=== PATIENT | male | born 1935 | race Caucasian/White ===

== ENCOUNTER 2017-03-07 12:23 | Observation (INO) | payer MEDICARE, OTHER ==
--- NOTE | 2017-03-07 12:36 | ERNOTE ---
Chest Pain/Cardiac HPI Chief Complaint: Chest Pain Time Seen by Provider: 03/07/17 12:25 Source: patient Exam Limitations: no limitations Immunizations: IMMUNIZATION HX Immunizations Up to Date Yes History of Influenza Vaccine No Hx Pneumococcal Vaccination No Allergies/Adverse Reactions: Allergies atorvastatin calcium [From Lipitor] Adverse Reaction (Mild, Verified 03/07/17 15 :50) LEG WEAKNESS metformin Adverse Reaction (Mild, Verified 03/07/17 15:50) Diarrhea methotrexate Adverse Reaction (Mild, Verified 03/07/17 15:50) ELEVATED LFT'S morphine Adverse Reaction (Mild, Verified 03/07/17 15:50) N/V oxycodone HCl [From Percocet] Adverse Reaction (Mild, Verified 03/07/17 15:50) INTOLERANCE, STOMACH UPSET, "KNOCKED ME OUT" Home Medications: HOME MEDICATIONS Omeprazole 20 mg PO DAILY 10/03/13 [Last Taken Unknown] Tamsulosin HCl 0.4 mg PO 1900 10/03/13 [Last Taken Unknown] Hydroxychloroquine Sulfate [Plaquenil] 200 mg PO BID 03/17/14 [Last Taken Unknown] Etanercept [Enbrel] 50 mg SQ Q7D 03/18/15 [Last Taken Unknown] Cholecalciferol (Vitamin D3) [Vitamin D] 2,000 unit PO DAILY 08/16/15 [Last Taken Unknown] Nintedanib Esylate [Ofev] 150 mg PO BID 08/16/15 [Last Taken Unknown] Narrative: Patient was working on his vacuum suede cleaner when he fell and passed out. He is not sure about the exact time frame. Afterwards he got up, went to bed and called his daughter (around 11:30) at that time he complained about chest pain which has resolved now. He has chronic pulmonary fibrosis and is on home O2. His daughters report that the furniture was moved indicating that he fell down hard. He also vomited once at home. Timing: gone now Location: left chest Chest Pain Radiation: arms Activities at Onset: activity Nitro Today/Relief: no nitro taken today Aspirin Treatment Today: provided by EMS Associated Symptoms: Present: shortness of breath Prior Chest Pain/Cardiac Workup: Reports: prior chest pain Review of Systems - Review of Systems Constitutional: Absent: recent illness, fever Respiratory: Present: See HPI, shortness of breath. Absent: cough Cardiology: Present: See HPI Gastrointestinal/Abdominal: Present: See HPI, vomiting. Absent: diarrhea, abdominal pain Genitourinary: Present: no symptoms reported Musculoskeletal: Present: neck pain - occippital Neurological: Present: headache, dizziness/light-headedness - Patient's Past Medical History Patient History - Medical: Anxiety, Depression, Renal Disease, Other Patient History - Cardiac/Respiratory: Other Patient History - Cancer: Bladder Patient History - Surgical Procedures: Appendectomy, Cataracts, Coronary Bypass Surgery, Cardiac stent, Other Patient History - Other: None - Family History Mother Family History - Medical: , Diabetes Type 1 Father Family History - Medical: Family History - Cardiac/Respiratory: CVA/Stroke - Social History Living Situations: alone Abuse History: No History of abuse Psych History: Hx of Anxiety, Hx of Depression Alcohol Use: none Drug Use: none - Immunizations Immunizations Up to Date: Yes Hx Pneumococcal Vaccination: No History of Influenza Vaccine: No Physical Exam - Physical Exam General Appearance: Present: wd/wn, alert, no apparent distress Head Exam: Present: normal inspection, no evidence of injury Eye Exam: Normal inspection: bilateral, PERRL: bilateral, EOMI: bilateral Ears, Nose, Throat: Present: normal ENT inspection, normal pharynx Neck: Present: normal inspection, supple, full range of motion. Absent: tender posterior midline Respiratory: Present: no respiratory distress, no accessory muscle use, lungs clear, decreased breath sounds Cardiovascular/Chest: Present: regular rate, rhythm, no murmur Gastrointestinal/Abdominal: Present: normal bowel sounds, nontender, nondistended, soft Back Exam: Present: normal inspection, no vertebral tenderness Extremity Exam: Present: no edema Neurological Exam: Present: alert, oriented, normal mood/affect Skin Exam: Present: normal color, warm/dry ED Progress - Results and Orders Patient's Lab Results:: I have reviewed the patient's lab results. - Vital Signs Patient's Vital Signs:: I have reviewed the patient's vital signs. Vital Signs: Vital Signs 03/07/17 03/07/17 12:25 12:32 Temperature 36.9 C Pulse Rate 86 82 Respiratory 23 H 24 H Rate Blood Pressure 102/59 102/59 O2 Sat by Pulse 100 100 Oximetry - EKG EKG: NSR, other - Q inferior leads, no acute changes EKG read: Interp. by me - X-Ray X-Ray #1 X-Ray: chest - no acute changes Interpretation: Reviewed by me - CT/Ultrasound CT/Ultrasound Narrative: CT head: no acute CT C-spine: no fracture - Progress/Reassessment Chief Complaint: Chest Pain Progress Note-Subjective: 03/07/17 13:57 no chest pain, 'just feel like I can't get a deep breath in', slight headache and dizzy discussed test results with patient and family, offered admission, agreed 03/07/17 14:01 left message with hospitalist 03/07/17 14:32 discussed with brad Leon to admit for observation for chest pain, syncope and possible concussion Departure Clinical Impression: Chest pain Qualifiers: Chest pain type: precordial pain Qualified Code(s): R07.2 - Precordial pain Syncope Qualifiers: Syncope type: unspecified Qualified Code(s): R55 - Syncope and collapse - Departure Disposition: [facility] Condition: Stable
[2017-03-07 12:39] LABS: Hematocrit 31.3 % (42.0-52.0); Hemoglobin 10.8 gm/dL (13.5-18.0); Mean Cell Volume 91.5 fl (78-100); Mean Corpuscular Hemoglobin 31.6 pg (27-31); Mean Corpuscular Hgb Conc 34.5 g/dl (32-36); Mean Platelet Volume 8.9 fl (6.0-9.5); Neutrophil # 4.9 K/mm3 (1.3-6.0); Neutrophil % 65.3 % (42-75.0); Platelet Count 187 K/mm3 (150-450); Red Blood Count 3.42 M/mm3 (4.7-6.0); Red Cell Distribution Width 12.8 % (11.5-14.0); White Blood Count 7.5 K/mm3 (4.0-10.5)
[2017-03-07 12:51] LABS: Prothrombin Time (Patient) 10.6 Seconds (9.4-11.4)
[2017-03-07 12:53] LABS: INR 1.02 INR (0.90-1.10); Partial Thrombolplastin Time 31.3 Seconds (24-32)
[2017-03-07 12:57] LABS: Albumin * 3.1 gm/dl (3.4-5.0); Anion Gap 12.1 mmol/L (6.8-13.8); Bilirubin, Total 0.4 mg/dL (0.0-1.1); Ca. Corrected For Albumin 8.6 mg/dL (8.4-10.2); Calcium * 8.2 mg/dL (7.9-10.9); Carbon Dioxide 26.8 mmol/L (24-32.6); Potassium 3.9 mmol/L (3.4-4.6); Total Protein 7.1 gm/dL (6.2-8.2)
[2017-03-07 13:01] LABS: Troponin I 0.023 ng/ml (0.00-0.10)
[2017-03-07] MEDS ORDERED: ACETAMINOPHEN 325 MG TABLET PO ONE (14:19)
[2017-03-07] MEDS ORDERED: ACETAMINOPHEN 325 MG TABLET ONE (14:21)
--- NOTE | 2017-03-07 17:06 | HP ---
Chief Complaint - Chief Complaint Date of Service: 03/07/17 Time of Service: 17:03 Chief Complaint: syncope/chest pain History of Present Illness: Carlos Lozano is an 81-year-old white male with past medical history of chronic renal failure stage III, hypertension, hyperlipidemia, rheumatoid arthritis, pulmonary fibrosis, who was admitted on 03/07/2017 for syncopal episode and chest pain. Aguila was working on his vacuum early this morning , changing the vacuum bag . When he stood up and started walking he passed out. He does not remember if he had any chest pain or diaphoresis before falling down. He remembers that everything went black and the next thing he was on the aaron. He woke up and called his daughter. He was then brought to our emergency room where a CT scan of his head showed no evidence of acute intracranial process. EKG showed NSr, CXR no acute cardiopulmonary findings. He was then admitted for observation. - Patient's Past Medical History Patient History - Medical: Anxiety, Depression, Renal Disease, Other Patient History - Cardiac/Respiratory: Other Patient History - Cancer: Bladder Patient History - Surgical Procedures: Appendectomy, Cataracts, Coronary Bypass Surgery, Cardiac stent, Other Patient History - Other: None - Family History Mother Family History - Medical: , Diabetes Type 1 Father Family History - Medical: Family History - Cardiac/Respiratory: CVA/Stroke - Social History Living Situations: alone Abuse History: No History of abuse Psych History: Hx of Anxiety, Hx of Depression Smoking Status: Former smoker Have you smoked in the past 12 months: No Alcohol Use: none Drug Use: none - Immunizations Immunizations Up to Date: Yes Hx Pneumococcal Vaccination: No History of Influenza Vaccine: No Review Of Systems (GEN) - Review of Systems Generalized/Overall Review: Absent: Chills, Fever EENTM: Present: Other - blackening of vision Respiratory: Present: Shortness of Breath. Absent: Cough Cardiac: Present: Chest Pain. Absent: Edema, Palpitations Abdominal: Absent: Nausea, Vomiting Genitourinary: Absent: Urgency, Frequency Musculoskeletal: Present: Joint Pain Allergies/Adverse Reactions: Allergies Allergy/AdvReac Type Severity Reaction Status Date / Time atorvastatin calcium AdvReac Mild LEG Verified 03/07/17 15:50 [From Lipitor] WEAKNESS metformin AdvReac Mild Diarrhea Verified 03/07/17 15:50 methotrexate AdvReac Mild ELEVATED Verified 03/07/17 15:50 LFT'S morphine AdvReac Mild N/V Verified 03/07/17 15:50 oxycodone HCl [From Percocet] AdvReac Mild INTOLERANCE, Verified 03/07/17 15:50 STOMACH UPSET, "KNOCKED ME OUT" Home Medications: HOME MEDICATIONS Omeprazole 20 mg PO DAILY 10/03/13 [Last Taken Unknown] Tamsulosin HCl 0.4 mg PO 1900 10/03/13 [Last Taken Unknown] Hydroxychloroquine Sulfate [Plaquenil] 200 mg PO BID 03/17/14 [Last Taken Unknown] Etanercept [Enbrel] 50 mg SQ Q7D 03/18/15 [Last Taken Unknown] Cholecalciferol (Vitamin D3) [Vitamin D] 2,000 unit PO DAILY 08/16/15 [Last Taken Unknown] Nintedanib Esylate [Ofev] 150 mg PO BID 08/16/15 [Last Taken Unknown] Exam - Exam Vital Signs: Vital Signs - Last Taken Temp 36.2 C L 03/07/17 15:25 Pulse 71 03/07/17 15:25 Resp 16 03/07/17 15:25 BP 142/87 03/07/17 15:25 Pulse Ox 100 03/07/17 15:25 Constitutional: Present: Alert, Oriented x3, Cooperative ENT Exam: Present: hearing grossly normal Eye Exam: bilateral eye: normal inspection, PERRL, EOMI Neck: Present: supple Respiratory: Present: decreased breath sounds, No rales, No wheezing Cardiovascular/Chest: Present: regular rate, rhythm, no JVD, no murmur Abdomen: Present: Normal bowel sounds, soft, nontender, nondistended Extremity: Present: no pedal edema, no calf tenderness Neurologic: Present: staff services manager II-XII nml as tested, no motor/sensory deficits, oriented x 3 Diagnostic Studies: Laboratory Results WBC 7.5 K/mm3 (4.0-10.5) 03/07/17 12:37 RBC 3.42 M/mm3 (4.7-6.0) L 03/07/17 12:37 Hgb 10.8 gm/dL (13.5-18.0) L 03/07/17 12:37 Hct 31.3 % (42.0-52.0) L 03/07/17 12:37 MCV 91.5 fl (78-100) 03/07/17 12:37 MCH 31.6 pg (27-31) H 03/07/17 12:37 MCHC 34.5 g/dl (32-36) 03/07/17 12:37 RDW 12.8 % (11.5-14.0) 03/07/17 12:37 Plt Count 187 K/mm3 (150-450) 03/07/17 12:37 MPV 8.9 fl (6.0-9.5) 03/07/17 12:37 Immature Gran % (Auto) 0.50 % (0.001-0.429) H 03/07/17 12:37 Immature Gran # (Auto) 0.04 K/mm3 (0.000-0.0310) H 03/07/17 12:37 Neutrophils % 65.3 % (42-75.0) 03/07/17 12:37 Lymphocytes % 21.8 % (20-51) 03/07/17 12:37 Monocytes % 8.1 % (0.0-9) 03/07/17 12:37 Eosinophils % 4.0 % (0.0-3.0) H 03/07/17 12:37 Basophils % 0.3 % (0.0-1.0) 03/07/17 12:37 Nucleated RBC % 0.0 k/mm3 (0-1) 03/07/17 12:37 Neutrophils # 4.9 K/mm3 (1.3-6.0) 03/07/17 12:37 Lymphocytes # 1.6 k/mm3 (1.5-3.5) 03/07/17 12:37 Monocytes # 0.6 k/mm3 (0.0-1.0) 03/07/17 12:37 Eosinophils # 0.3 k/mm3 (0.0-0.7) 03/07/17 12:37 Absolute Basophils 0.0 k/mm3 (0.0-0.1) 03/07/17 12:37 PT 10.6 Seconds (9.4-11.4) 03/07/17 12:37 INR (Anticoag Therapy) 1.02 INR (0.90-1.10) 03/07/17 12:37 PTT ([place]) 31.3 Seconds (24-32) 03/07/17 12:37 Sodium 140 mmol/L (132-142) 03/07/17 12:37 Plasma Sodium 140 mmol/L (130-142) 03/07/17 12:37 Potassium 3.9 mmol/L (3.4-4.6) 03/07/17 12:37 Chloride 105 mmol/L (97-106) 03/07/17 12:37 Carbon Dioxide 26.8 mmol/L (24-32.6) 03/07/17 12:37 Anion Gap 12.1 mmol/L (6.8-13.8) 03/07/17 12:37 BUN 27 mg/dL (6-23) H 03/07/17 12:37 Creatinine 1.42 mg/dL (0.4-1.4) H 03/07/17 12:37 Est GFR (Non-Af Amer) 51 mL/min (60-130) L 03/07/17 12:37 BUN/Creatinine Ratio 19.0 (9.0-21.6) 03/07/17 12:37 Random Glucose 104 mg/dL (70-110) 03/07/17 12:37 Calcium 8.2 mg/dL (7.9-10.9) 03/07/17 12:37 Calcium Adj for Albumin 8.6 mg/dL (8.4-10.2) 03/07/17 12:37 Total Bilirubin 0.4 mg/dL (0.0-1.1) 03/07/17 12:37 AST 14 U/L (0-48) 03/07/17 12:37 ALT 15 U/L (19-67) L 03/07/17 12:37 Alkaline Phosphatase 39 U/L (50-170) L 03/07/17 12:37 Troponin I 0.023 ng/ml (0.00-0.10) 03/07/17 12:37 Total Protein 7.1 gm/dL (6.2-8.2) 03/07/17 12:37 Albumin 3.1 gm/dl (3.4-5.0) L 03/07/17 12:37 Assessment/Plan - Assessment/Plan (1) Syncope Assessment: likely orthostatic. will do orthostatic VS. will give IVF. Problem: Acute Qualifiers: Syncope type: unspecified Qualified Code(s): R55 - Syncope and collapse (2) Chest pain Assessment: will do serial EKG and enzyme studies. continue with telemetry. Problem: Acute Qualifiers: Chest pain type: precordial pain Qualified Code(s): R07.2 - Precordial pain (3) Hypertension Problem: Acute (4) Chronic renal failure, stage 3 (moderate) Problem: Acute (5) Rheumatoid arthritis Problem: Acute (6) Pulmonary fibrosis Problem: Acute
[2017-03-07] MEDS: NORMAL SALINE 1,000 ML IV PRN (17:44)
[2017-03-07] MEDS: HYDROXYCHLOROQUINE SULFATE 200 MG TABLET PO SCH (20:02)
[2017-03-07] MEDS ORDERED: NINTEDANIB ESYLATE 150 MG PO SCH (21:00)
[2017-03-08] MEDS ORDERED: MAG HYDROX/ALUMINUM HYD/SIMETH 148 ML BTL PO SCH (01:15)
[2017-03-08] MEDS: NORMAL SALINE 1,000 ML IV PRN (03:56)
[2017-03-08] MEDS ORDERED: ACETAMINOPHEN 325 MG TABLET PO PRN (05:55)
[2017-03-08] MEDS ORDERED: PANTOPRAZOLE SODIUM 20 MG TABLET.DR PO SCH (07:00)
--- NOTE | 2017-03-08 07:56 | PN ---
Progess Note - Interim Narrative: 03/08/17 07:55 Orthostatic VS improved with IVF. Will continue with IVF for now. refer to PT . For discharge this afternoon.
[2017-03-08] MEDS: HYDROXYCHLOROQUINE SULFATE 200 MG TABLET PO SCH (08:16)
[2017-03-08] MEDS ORDERED: MAG HYDROX/ALUMINUM HYD/SIMETH 30 ML UDC PO SCH (09:00)
[2017-03-08] MEDS ORDERED: OFEV 150 MG PO SCH (09:00)
[2017-03-08] MEDS ORDERED: CHOLECALCIFEROL 1,000 UNIT CAPSULE PO SCH (09:00)
--- NOTE | 2017-03-08 09:40 | DS ---
(1) Syncope Diagnosis(s): orthostatic. he is not able to stop his tamsulosin as he gets catheterized for urinary retention when he does that. Problem: Acute Qualifiers: Syncope type: unspecified Qualified Code(s): R55 - Syncope and collapse (2) Chest pain Diagnosis(s): stable angina. AMI ruled out. Problem: Acute Qualifiers: Chest pain type: precordial pain Qualified Code(s): R07.2 - Precordial pain (3) Hypertension Problem: Chronic Qualifiers: Hypertension type: essential hypertension Qualified Code(s): I10 - Essential (primary) hypertension (4) Chronic renal failure, stage 3 (moderate) Problem: Chronic (5) Rheumatoid arthritis Problem: Chronic (6) Pulmonary fibrosis Problem: Chronic Description of Stay: Carlos Lozano is an 81-year-old white male with past medical history of chronic renal failure stage III, hypertension, hyperlipidemia, rheumatoid arthritis, pulmonary fibrosis, who was admitted on 03/07/2017 for syncopal episode and chest pain. Aguila was working on his vacuum early this morning , changing the vacuum bag . When he stood up and started walking he passed out. He does not remember if he had any chest pain or diaphoresis before falling down. He remembers that everything went black and the next thing he was on the floor. He woke up and called his daughter. He was then brought to our emergency room where a CT scan of his head showed no evidence of acute intracranial process. EKG showed NSR, CXR no acute cardiopulmonary findings. His labs were showed no siginificant findings. He was then admitted for observation. He was started on IVF and was put on telemetry and neurochecks. PT was consulted. His orthostatic VS was positive on admission. It has improved today. Another thing is that his tamsulosin could cause him to be orthostatic but he cannot afford to stop that. He ruled out for AMI. He is stable to go home today. Procedures Performed: none Discharge Disposition: Home self care Disposition: Home self-care Condition: Fair Discharge Activity: Activity as tolerated Discharge Diet: Low salt Additional Patient Instructions (free text): Follow up with PCP in 2 weeks. Prescriptions (Any new or edited meds): Acetaminophen [Tylenol] 650 mg PO Q6H PRN #30 tablet PRN Reason: Mild Pain Complete Home Medications List: Complete Home Medication List: Omeprazole 20 mg PO DAILY 10/03/13 Tamsulosin HCl 0.4 mg PO 1900 10/03/13 Hydroxychloroquine Sulfate [Plaquenil] 200 mg PO BID 03/17/14 Etanercept [Enbrel] 50 mg SQ Q7D 03/18/15 Cholecalciferol (Vitamin D3) [Vitamin D3] 2,000 unit PO DAILY 08/16/15 Nintedanib Esylate [Ofev] 150 mg PO BID 08/16/15 Acetaminophen [Tylenol] 650 mg PO Q6H PRN #30 tablet 03/08/17
[2017-03-08 11:53] VITALS: BP 131/57
== END 2017-03-08 13:15 | disposition home or self-care (01) ==
LOC: ER 12:23 → MS 14:40
PROVIDERS: ADMIT Internal Medicine; ATTEND Internal Medicine
DX: R55 Syncope and collapse (principal); R07.2 Precordial pain; I10 Essential (primary) hypertension; I12.9 Hypertensive chronic kidney disease with stage 1 through stage 4 chronic kidney disease, or unspecified chronic kidney disease; N18.3 Chronic kidney disease, stage 3 (moderate); E78.5 Hyperlipidemia, unspecified; M06.9 Rheumatoid arthritis, unspecified; J84.10 Pulmonary fibrosis, unspecified
CPT/HCPCS: 36415; 70450; 71020; 72125; 80053; 84484; 85025; 85610; 85730; 93005; 99284; G0378

== ENCOUNTER 2017-06-22 16:59 | Emergency (ER) | payer MEDICARE, OTHER ==
[2017-06-22] MEDS ORDERED: NORMAL SALINE 500 ML IV PRN (17:08)
[2017-06-22 17:22] LABS: Hematocrit 34.1 % (42.0-52.0); Hemoglobin 11.4 gm/dL (13.5-18.0); Mean Cell Volume 92.9 fl (78-100); Mean Corpuscular Hemoglobin 31.1 pg (27-31); Mean Corpuscular Hgb Conc 33.4 g/dl (32-36); Neutrophil # 3.1 K/mm3 (1.3-6.0); Platelet Count 211 K/mm3 (150-450); Red Blood Count 3.67 M/mm3 (4.7-6.0); Red Cell Distribution Width 13.5 % (11.5-14.0)
[2017-06-22 17:36] LABS: Partial Thrombolplastin Time 28.3 Seconds (24-32)
[2017-06-22] MEDS ORDERED: NITROGLYCERIN 0.4 MG/TAB BTL SL ONE ×2 (17:38→17:50)
[2017-06-22 17:40] LABS: Albumin * 3.3 gm/dl (3.4-5.0); Anion Gap 9.7 mmol/L (6.8-13.8); BUN/Creatinine Ratio 14.6 (9.0-21.6); Bilirubin, Total 0.5 mg/dL (0.0-1.1); Ca. Corrected For Albumin 8.8 mg/dL (8.4-10.2); Calcium * 8.6 mg/dL (7.9-10.9); Carbon Dioxide 30.8 mmol/L (24-32.6); Potassium 4.5 mmol/L (3.4-4.6); Total Protein 7.5 gm/dL (6.2-8.2); Troponin I 0.017 ng/ml (0.00-0.10)
[2017-06-22] MEDS ORDERED: NORMAL SALINE 500 ML IV ONE (17:50)
--- NOTE | 2017-06-22 19:36 | ERNOTE ---
<Zachery Seth - Last Filed: 06/30/17 10:45> Chest Pain/Cardiac HPI Date of Service: 06/22/17 Chief Complaint: Chest Pain Time Seen by Provider: 06/22/17 17:10 Source: patient, family Immunizations: IMMUNIZATION HX Immunizations Up to Date No History of Influenza Vaccine No Hx Pneumococcal Vaccination No Allergies/Adverse Reactions: Allergies pollen extracts Allergy (Verified 06/22/17 17:15) atorvastatin calcium [From Lipitor] Adverse Reaction (Mild, Verified 06/22/17 17 :10) LEG WEAKNESS metformin Adverse Reaction (Mild, Verified 06/22/17 17:10) Diarrhea methotrexate Adverse Reaction (Mild, Verified 06/22/17 17:10) ELEVATED LFT'S morphine Adverse Reaction (Mild, Verified 06/22/17 17:10) N/V oxycodone HCl [From Percocet] Adverse Reaction (Mild, Verified 06/22/17 17:10) INTOLERANCE, STOMACH UPSET, "KNOCKED ME OUT" Home Medications: HOME MEDICATIONS Tamsulosin HCl 0.4 mg PO 1900 10/03/13 [Last Taken Unknown] Hydroxychloroquine Sulfate [Plaquenil] 300 mg PO BID 03/17/14 [Last Taken Unknown] Etanercept [Enbrel] 50 mg SQ Q7D 03/18/15 [Last Taken Unknown] Cholecalciferol (Vitamin D3) [Vitamin D3] 2,000 unit PO DAILY 08/16/15 [Last Taken Unknown] Nintedanib Esylate [Ofev] 150 mg PO BID 08/16/15 [Last Taken Unknown] Acetaminophen [Tylenol] 650 mg PO Q6H PRN #30 tablet 03/08/17 [Last Taken Unknown] Cyanocobalamin (Vitamin B-12) [Vitamin B12] 1,000 mcg PO DAILY 06/22/17 [Last Taken Unknown] Escitalopram Oxalate [Lexapro] 10 mg PO DAILY 06/22/17 [Last Taken Unknown] Furosemide 20 mg PO DAILY 06/22/17 [Last Taken Unknown] Narrative: patient with acute onset of substernal chest pain, hx of pulmonary fibrosis and stable angina Timing: constant, getting worse Severity/Quality: moderate, dull, pressure Location: substernal Chest Pain Radiation: no radiation Activities at Onset: emotional stress Modifying Factors - Improves: Present: nothing Modifying Factors - Worsens: Present: breathing, movement Nitro Today/Relief: no nitro taken today Aspirin Treatment Today: no aspirin today, 81 mg x 1 Associated Symptoms: Present: denies symptoms Prior Chest Pain/Cardiac Workup: Reports: prior chest pain, angina, heart attack Prior Treatment: Reports: recently seen, treated by physician Review of Systems - Narrative Narrative: patient appears in mild distress - Review of Systems Constitutional: Present: See HPI, weakness, fatigue, malaise EYE: Present: no symptoms reported ENT: Present: no symptoms reported Respiratory: Present: no symptoms reported Cardiology: Present: See HPI, chest pain Gastrointestinal/Abdominal: Present: no symptoms reported Genitourinary: Present: no symptoms reported Musculoskeletal: Present: no symptoms reported Skin: Present: no symptoms reported Neurological: Present: no symptoms reported Endocrine: Present: no symptoms reported Hematologic/Lymphatic: Present: no symptoms reported Psych: Present: no symptoms reported All Other Systems: All systems neg except as marked - Patient's Past Medical History Patient History - Medical: Anxiety, Depression, Renal Disease, Other Patient History - Cardiac/Respiratory: Coronary Heart Disease, Other Patient History - Cancer: Bladder Patient History - Surgical Procedures: Appendectomy, Cataracts, Coronary Bypass Surgery, Cardiac stent, Other Patient History - Other: None - Family History Family History:: no untoward family reactions to anesthesia, no familial bleeding tendencies, no family history of clotting disorders, no family history of premature - Family History Mother Family History - Medical: , Diabetes Type 1 Family History - Cardiac/Respiratory: No pertinent hx Family History - Cancer: No pertinent family hx Father Family History - Medical: Family History - Cardiac/Respiratory: CVA/Stroke Family History - Cancer: No pertinent family hx - Social History Living Situations: home Abuse History: No History of abuse Psych History: Hx of Anxiety, Hx of Depression Does anyone smoke in the home?: No Smoking Status: Former smoker Have you smoked in the past 12 months: No Do you dip or chew tobacco: No Patient requests Smoking Cessation Consult: No Initiate information on Smoking Cessation: No Alcohol Use: none Drug Use: none - Immunizations Immunizations Up to Date: No Hx Pneumococcal Vaccination: No History of Influenza Vaccine: No Physical Exam - Physical Exam General Appearance: Present: mild distress Head Exam: Present: normal inspection, no evidence of injury Eye Exam: Normal inspection: bilateral, PERRL: bilateral, EOMI: bilateral Ears, Nose, Throat: Present: normal ENT inspection Neck: Present: normal inspection, nontender Respiratory: Present: no respiratory distress, normal breath sounds, no accessory muscle use, chest nontender, lungs clear Cardiovascular/Chest: Present: regular rate, rhythm, no murmur, normal peripheral pulses Peripheral Pulses: N=norm/S=strong/W=weak/B=bound/A=absent: Carotid (R): Normal , Carotid (L): Normal, Radial (R): Normal, Radial (L): Normal, Femoral (R): Normal, Femoral (L): Normal, Dorsalis-pedis (R): Normal, Dorsalis-pedis (L): Normal Gastrointestinal/Abdominal: Present: normal bowel sounds, nontender, nondistended, soft, no organomegaly Male Genitals Exam: Present: normal genitalia, normal prostate, no hernia Back Exam: Present: normal inspection, normal range of motion, no CVA tenderness , no vertebral tenderness Extremity Exam: Present: normal inspection, non-tender, normal range of motion, no edema Neurological Exam: Present: alert, oriented, normal mood/affect, no motor/ sensory deficits DTR: N=norm/NB=norm/brisk/A=abs/DD=dull/dimin/HC=hyperactive: Bicep (R): Normal , Bicep (L): Normal, Tricep (R): Normal, Tricep (L): Normal, Knee (R): Normal, Knee (L): Normal, Ankle (R): Normal, Ankle (L): Normal Skin Exam: Present: normal color, warm/dry Lymphatic Exam: Present: no adenopathy ED Progress - Date and Time Seen: Date and Time: 06/22/17 19:33 patient improved no further chest pain to repeat tro at 1999 - Results and Orders Patient's Lab Results:: I have reviewed the patient's lab results. - Vital Signs Patient's Vital Signs:: I have reviewed the patient's vital signs. Vital Signs: Vital Signs 06/22/17 06/22/17 06/22/17 17:03 17:16 17:39 Temperature 36.4 C L Pulse Rate 68 66 64 Respiratory 17 17 22 H Rate Blood Pressure 151/69 151/69 137/62 O2 Sat by Pulse 92 100 100 Oximetry 06/22/17 06/22/17 06/22/17 17:41 17:47 18:07 Temperature Pulse Rate 70 67 Respiratory 18 Rate Blood Pressure 123/66 118/59 O2 Sat by Pulse 100 Oximetry 06/22/17 18:10 Temperature Pulse Rate 63 Respiratory 12 Rate Blood Pressure 106/67 O2 Sat by Pulse 100 Oximetry - EKG EKG: NSR - X-Ray X-Ray #1 X-Ray: chest - no acute process Interpretation: Discd w/ radiologist - Progress/Reassessment Chief Complaint: Chest Pain Progress:: Improved - Transfer of Care Receiving Physician: Mehran Sebastian Departure Clinical Impression: Chest pain Qualifiers: Chest pain type: unspecified Qualified Code(s): R07.9 - Chest pain, unspecified - Departure Disposition: Home Follow Up Needed Condition: Good Instructions: Nonspecific Chest Pain, [id number] Additional Instructions: See Dr. Dolan to review your medications. Continue to take your new medication. Referrals: Thea Dolan MD [Primary Care Provider] - <Mehran Sebastian - Last Filed: 07/24/17 23:59> Chest Pain/Cardiac HPI Exam Limitations: no limitations Immunizations: IMMUNIZATION HX Immunizations Up to Date No History of Influenza Vaccine No Hx Pneumococcal Vaccination No ED Progress - Results and Orders Patient's Lab Results:: I have reviewed the patient's lab results. Results and Orders: Laboratory Tests 06/22/17 06/22/17 06/22/17 17:20 17:20 17:20 WBC 6.0 Hgb 11.4 L Hct 34.1 L Plt Count 211 PT 10.0 INR (Anticoag Therapy) 1.00 PTT ([place]) 28.3 Sodium 140 Potassium 4.5 Chloride 104 Carbon Dioxide 30.8 BUN 23 Creatinine 1.58 H Random Glucose 98 Calcium 8.6 Total Bilirubin 0.5 AST 18 ALT 20 Alkaline Phosphatase 41 L Troponin I 0.017 Total Protein 7.5 Albumin 3.3 L - Vital Signs Vital Signs: Vital Signs 06/22/17 06/22/17 06/22/17 17:03 17:16 17:39 Temperature 36.4 C L Pulse Rate 68 66 64 Respiratory 17 17 22 H Rate Blood Pressure 151/69 151/69 137/62 O2 Sat by Pulse 92 100 100 Oximetry 06/22/17 06/22/17 06/22/17 17:41 17:47 18:07 Temperature Pulse Rate 70 67 Respiratory 18 Rate Blood Pressure 123/66 118/59 O2 Sat by Pulse 100 Oximetry 06/22/17 18:10 Temperature Pulse Rate 63 Respiratory 12 Rate Blood Pressure 106/67 O2 Sat by Pulse 100 Oximetry - Progress/Reassessment Progress Note-Subjective: 06/22/17 20:54 discussed with patient his recent stress and medication addition. Pt feels that this may all be due to the increased stress in his life. - Transfer of Care Physician Sign Out: Zachery Seth Pending Results: Labs Expected Disposition: Discharge
[2017-06-22 21:10] VITALS: BP 120/56
== END 2017-06-22 20:55 | disposition home or self-care (01) ==
LOC: ER 16:59
DX: Z87.891 Personal history of nicotine dependence; F41.9 Anxiety disorder, unspecified; Z95.5 Presence of coronary angioplasty implant and graft; Z85.51 Personal history of malignant neoplasm of bladder; I50.9 Heart failure, unspecified; R07.9 Chest pain, unspecified; F32.9 Major depressive disorder, single episode, unspecified

== ENCOUNTER 2017-08-07 14:03 | Inpatient (IN) | payer MEDICARE, OTHER ==
[2017-08-07 14:42] LABS: Hematocrit 35.6 % (42.0-52.0); Hemoglobin 12.1 gm/dL (13.5-18.0); Mean Cell Volume 90.6 fl (78-100); Mean Corpuscular Hemoglobin 30.8 pg (27-31); Mean Platelet Volume 8.9 fl (6.0-9.5); Neutrophil # 4.5 K/mm3 (1.3-6.0); Neutrophil % 69.8 % (42-75.0); Platelet Count 239 K/mm3 (150-450); Red Blood Count 3.93 M/mm3 (4.7-6.0); Red Cell Distribution Width 13.3 % (11.5-14.0); White Blood Count 6.5 K/mm3 (4.0-10.5)
[2017-08-07 14:57] LABS: Albumin * 3.4 gm/dl (3.4-5.0); Anion Gap 11.3 mmol/L (6.8-13.8); BUN/Creatinine Ratio 13.1 (9.0-21.6); Bilirubin, Total 0.5 mg/dL (0.0-1.1); Ca. Corrected For Albumin 8.8 mg/dL (8.4-10.2); Calcium * 8.6 mg/dL (7.9-10.9); Carbon Dioxide 31.1 mmol/L (24-32.6); Potassium 4.4 mmol/L (3.4-4.6); Total Protein 7.8 gm/dL (6.2-8.2)
[2017-08-07] MEDS ORDERED: ALBUTEROL SULFATE 2.5 MG/0.5 ML VIAL.NEB IH PRN (16:30)
[2017-08-07] MEDS ORDERED: ACETAMINOPHEN 500 MG TABLET PO PRN (16:30)
--- NOTE | 2017-08-07 16:56 | PN ---
Progess Note - Interim Narrative: 08/07/17 16:53 Patient is seen face to face in the hospital on 08/07/2017 for his observation admission. Reviewed and agree with the office [facility]
[2017-08-07] MEDS: NORMAL SALINE 1,000 ML IV PRN (17:07)
[2017-08-07] MEDS: TAMSULOSIN HCL 0.4 MG CAP.SR.24H PO SCH (18:49)
[2017-08-07] MEDS: NINTEDANIB ESYLATE 150 MG PO SCH (19:53)
[2017-08-07] MEDS: HYDROXYCHLOROQUINE SULFATE 200 MG TABLET PO SCH (20:29)
[2017-08-08] MEDS: NORMAL SALINE 1,000 ML IV PRN ×3 (02:58→22:45)
[2017-08-08 07:37] LABS: Hematocrit 35.8 % (42.0-52.0); Hemoglobin 12.1 gm/dL (13.5-18.0); Mean Corpuscular Hemoglobin 31.1 pg (27-31); Mean Corpuscular Hgb Conc 33.8 g/dl (32-36); Mean Platelet Volume 9.1 fl (6.0-9.5); Neutrophil # 3.2 K/mm3 (1.3-6.0); Neutrophil % 55.2 % (42-75.0); Platelet Count 205 K/mm3 (150-450); Red Blood Count 3.89 M/mm3 (4.7-6.0); Red Cell Distribution Width 13.5 % (11.5-14.0); White Blood Count 5.8 K/mm3 (4.0-10.5)
[2017-08-08 07:43] LABS: BUN/Creatinine Ratio 13.8 (9.0-21.6); Estimated Creat Clear 39.3; Potassium 4.3 mmol/L (3.4-4.6)
[2017-08-08 07:44] LABS: Anion Gap 9.3 mmol/L (6.8-13.8); Calcium * 8.2 mg/dL (7.9-10.9)
[2017-08-08] MEDS: NINTEDANIB ESYLATE 150 MG PO SCH ×2 (08:06→19:37)
--- NOTE | 2017-08-08 08:54 | PN ---
Subjective - Date and Time Seen Date: 08/08/17 Time: 08:47 Subjective Narrative: Still with orthostasis despite IVF and holding lasix. Objective - Review of Systems Generalized/Overall Review: Reports: Weakness. Denies: Chills, Fever Respiratory: Reports: Shortness of Breath Cardiac: Denies: Chest Pain, Edema, Palpitations Abdominal: Denies: Nausea, Vomiting Genitourinary Symptoms: Denies: Urgency, Frequency Musculoskeletal Complaints: Reports: Joint Pain - Vitals Vitals: Last Vital Signs Temp 36.5 C 08/08/17 07:40 Pulse 75 08/08/17 07:40 Resp 20 08/08/17 07:40 BP 138/68 08/08/17 07:40 Pulse Ox 100 08/08/17 07:40 - Abnormal Lab Findings Abnormal Lab Findings: Abnormal Lab Results 08/07/17 08/07/17 08/08/17 Range/Units 14:38 14:38 07:34 RBC 3.93 L 3.89 L (4.7-6.0) M/mm3 Hgb 12.1 L 12.1 L (13.5-18.0) gm/dL Hct 35.6 L 35.8 L (42.0-52.0) % MCH 31.1 H (27-31) pg Immature Gran % (Auto) 0.70 H (0.001-0.429) % Immature Gran # (Auto) 0.04 H (0.000-0.0310) K/mm3 Lymphocytes % 18.9 L (20-51) % Eosinophils % 3.9 H 6.0 H (0.0-3.0) % Lymphocytes # 1.2 L (1.5-3.5) k/mm3 Creatinine 1.68 H (0.4-1.4) mg/dL Est GFR (Non-Af Amer) 42 L (60-130) mL/min Random Glucose 113 H (70-110) mg/dL ALT 16 L (19-67) U/L 08/08/17 Range/Units 07:34 RBC (4.7-6.0) M/mm3 Hgb (13.5-18.0) gm/dL Hct (42.0-52.0) % MCH (27-31) pg Immature Gran % (Auto) (0.001-0.429) % Immature Gran # (Auto) (0.000-0.0310) K/mm3 Lymphocytes % (20-51) % Eosinophils % (0.0-3.0) % Lymphocytes # (1.5-3.5) k/mm3 Creatinine (0.4-1.4) mg/dL Est GFR (Non-Af Amer) 53 L D (60-130) mL/min Random Glucose (70-110) mg/dL ALT (19-67) U/L - Exam Constitutional: Present: Alert, Oriented x3, Cooperative, Elderly ENT Exam: Present: hearing grossly normal Neck: Present: supple Respiratory: Present: decreased breath sounds, No rales Cardiovascular/Chest: Present: regular rate, rhythm, no JVD, no murmur Abdomen: Present: soft, nontender, nondistended Extremity: Present: no pedal edema, no calf tenderness Assessment/Plan - Problems/Diagnosis (1) Syncope Problem: Acute Qualifiers: Syncope type: unspecified Qualified Code(s): R55 - Syncope and collapse Narrative: due to orthostasis. furosemide stopped. IVF started yesterday with compression stockings. will start low dose florinef today. he does have tamsulosin/ finasteride but cannot stop them due to his urinary retention. (2) Chronic renal failure, stage 3 (moderate) Problem: Chronic (3) Pulmonary fibrosis Problem: Chronic (4) Rheumatoid arthritis Problem: Chronic (5) Bruise of face Problem: Acute Narrative: due to falls.
[2017-08-08] MEDS: CHOLECALCIFEROL 1,000 UNIT CAPSULE PO SCH (09:09)
[2017-08-08] MEDS: HYDROXYCHLOROQUINE SULFATE 200 MG TABLET PO SCH ×2 (09:09→21:40)
[2017-08-08] MEDS: FLUDROCORTISONE ACETATE 0.1 MG TABLET PO SCH (09:09)
[2017-08-08] MEDS: CYANOCOBALAMIN 1,000 MCG TABLET PO SCH (09:10)
[2017-08-08] MEDS: FINASTERIDE 5 MG TABLET PO SCH (09:10)
[2017-08-08] MEDS: ESCITALOPRAM OXALATE 10 MG TAB PO SCH (09:10)
[2017-08-08] MEDS: ENOXAPARIN SODIUM 30 MG/0.3 ML SYRG SC SCH (15:25)
[2017-08-08] MEDS: TAMSULOSIN HCL 0.4 MG CAP.SR.24H PO SCH (19:36)
--- NOTE | 2017-08-09 08:43 | PN ---
Dalila Note - Interim Narrative: 08/09/17 08:39 Patient orthostatic VS showed no significant drop of his BP from laying to sitting and standing. His BP is on the low side. Will increase his IVF.
[2017-08-09] MEDS: NORMAL SALINE 1,000 ML IV PRN ×2 (08:44→15:27)
[2017-08-09] MEDS: FLUDROCORTISONE ACETATE 0.1 MG TABLET PO SCH (08:54)
[2017-08-09] MEDS: HYDROXYCHLOROQUINE SULFATE 200 MG TABLET PO SCH (08:54)
[2017-08-09] MEDS: FINASTERIDE 5 MG TABLET PO SCH (08:54)
[2017-08-09] MEDS: CYANOCOBALAMIN 1,000 MCG TABLET PO SCH (08:54)
[2017-08-09] MEDS: ESCITALOPRAM OXALATE 10 MG TAB PO SCH (08:54)
[2017-08-09] MEDS: CHOLECALCIFEROL 1,000 UNIT CAPSULE PO SCH (08:54)
[2017-08-09] MEDS: NINTEDANIB ESYLATE 150 MG PO SCH (08:55)
[2017-08-09 15:10] VITALS: BP 120/54
[2017-08-09] MEDS: ENOXAPARIN SODIUM 30 MG/0.3 ML SYRG SC SCH (15:18)
--- NOTE | 2017-08-09 16:32 | DS ---
(1) Syncope Diagnosis(s): due to orthostasis Problem: Acute Qualifiers: Syncope type: unspecified Qualified Code(s): R55 - Syncope and collapse (2) Chronic renal failure, stage 3 (moderate) Problem: Chronic (3) Pulmonary fibrosis Problem: Chronic (4) Rheumatoid arthritis Problem: Chronic (5) Bruise of face Diagnosis(s): from falls Problem: Acute Description of Stay: Aguila Lozano, is an 82-year-old white male, with previous medical history of coronary artery disease, hypertension, hyperlipidemia, rheumatoid arthritis, interstitial lung disease, chronic renal failure failure, stage III, who was admitted on 08/07/2017 for syncope and falls. The patient came to my office for his regular follow-up and complained that he had been falling down at least once a week for the last 6 weeks. He had bruises ans scratches on his face. He said he gets dizzy whenever he stands up and then starts passing out and falls down. He also noticed that his blood pressure lately have been running low. He also said that he has some vision loss just before he passes out and then his vision recovers slowly when he starts waking up. He did have a carotid ultrasound in 2015 which showed bilateral carotid artery stenosis , less than 50%. He was then admitted for observation on and was started on IV fluids and compression stockings. He did admit that he had poor oral fluid intake. The patient's orthostatic vital signs were still positive the following day and PT felt he was not safe to ambulate without the assist of one person. he was transferred to acute status. His IV fluids were increased to 150 mL/hour and fludrocortisone 0.1 mg PO QD was started. He no longer has orthostasis this afternoon and physical therapy feel sit is safe for him to go home. He is stable to be discharge today. Procedures Performed: none Discharge Disposition: Home self care Disposition: Home self-care Condition: Fair Discharge Activity: Activity as tolerated Discharge Diet: General/regular food Referrals: Thea Dolan MD [Primary Care Provider] - Problem Oriented Discharge Instructions to Patient/Family: Fall Prevention in the Home, [id number], Hypotension, [id number] Additional Patient Instructions (free text): -Please make TCM appointment unless halfway discharge. Thank you! Keysha @ [phone]. Follow up with PCP on Sunday. Prescriptions (Any new or edited meds): Fludrocortisone Acetate [Florinef] 0.1 mg PO DAILY 30 Days #30 tablet Complete Home Medications List: Complete Home Medication List: Tamsulosin HCl 0.4 mg PO 1900 10/03/13 Hydroxychloroquine Sulfate [Plaquenil] 300 mg PO BID 03/17/14 Etanercept [Enbrel] 50 mg SQ Q7D 03/18/15 Cholecalciferol (Vitamin D3) [Vitamin D3] 2,000 unit PO DAILY 08/16/15 Nintedanib Esylate [Ofev] 150 mg PO BID 08/16/15 Cyanocobalamin (Vitamin B-12) [Vitamin B12] 1,000 mcg PO DAILY 06/22/17 Escitalopram Oxalate [Lexapro] 10 mg PO DAILY 06/22/17 Acetaminophen [Tylenol] 1,000 mg PO Q6H PRN 08/07/17 Albuterol Sulfate [Proair Hfa] 2 puff IH Q4H PRN 08/07/17 Finasteride [Proscar] 5 mg PO DAILY 08/07/17 Goodridge, Disposable [Needle] 1 each MC Q7D 08/07/17 Fludrocortisone Acetate [Florinef] 0.1 mg PO DAILY 30 Days #30 tablet 08/09/17 Amb Orders for Discharge: Basic Metabolic Panel Time Frame: 08/13/17, Location: Determined By Patient
== END 2017-08-09 17:50 | disposition home or self-care (01) | DRG 312 ==
LOC: MS 14:03 → OBSVTOIN 08-08 14:24
PROVIDERS: ADMIT Internal Medicine; ATTEND Internal Medicine
DX: I25.10 Atherosclerotic heart disease of native coronary artery without angina pectoris; N18.3 Chronic kidney disease, stage 3 (moderate); Y92.9 Unspecified place or not applicable; W19.XXXA Unspecified fall, initial encounter; Z95.9 Presence of cardiac and vascular implant and graft, unspecified; Z87.891 Personal history of nicotine dependence; I12.9 Hypertensive chronic kidney disease with stage 1 through stage 4 chronic kidney disease, or unspecified chronic kidney disease; I95.1 Orthostatic hypotension; Z95.1 Presence of aortocoronary bypass graft; Z85.038 Personal history of other malignant neoplasm of large intestine; E78.5 Hyperlipidemia, unspecified; Z91.81 History of falling; M06.9 Rheumatoid arthritis, unspecified; S00.83XA Contusion of other part of head, initial encounter; Z86.73 Personal history of transient ischemic attack (TIA), and cerebral infarction without residual deficits
CPT/HCPCS: 36415; 71045; 80048; 80053; 85025; 93005; 93880; 97110; 97116; 97161; 97530; G0378; G0379; G8978; G8979; G8980

== ENCOUNTER 2020-07-12 13:41 | Observation (INO) ==
[2020-07-12 14:07] LABS: Urine Bilirubin Negative (NEGATIVE); Urine Blood Negative /ul (NEGATIVE); Urine Ketone Negative (NEGATIVE); Urine Nitrite Negative (NEGATIVE); Urine Protein Negative (NEGATIVE); Urine Specific Gravity 1.015 SP.GR. (1.005-1.030); Urine Urobilinogen Normal (NORMAL); Urine pH 7.5 pH (5.0-7.0)
[2020-07-12 14:09] LABS: Hematocrit 35.1 % (42.0-52.0); Hemoglobin 11.3 gm/dL (13.5-18.0); Mean Cell Volume 89.5 fl (78-100); Mean Corpuscular Hemoglobin 28.8 pg (27-31); Mean Corpuscular Hgb Conc 32.2 g/dl (32-36); Mean Platelet Volume 8.4 fl (8-11.3); Neutrophil # 6.2 K/mm3 (1.3-6.0); Neutrophil % 77.3 % (42-75.0); Platelet Count 249 K/mm3 (150-450); Red Blood Count 3.92 M/mm3 (4.7-6.0); White Blood Count 8.1 K/mm3 (4.0-10.5)
[2020-07-12] MEDS ORDERED: DIPHTH,PERTUSS(ACELL),TET VAC 0.5 ML VIAL IM ONE (14:09)
--- NOTE | 2020-07-12 14:14 | ERNOTE ---
Trauma/Assault HPI - Narrative Date of Service: 07/12/20 - General Stated Complaint: Multiple falls, weakness Time Seen by Provider: 07/12/20 13:43 Source: patient Exam Limitations: no limitations - Immun/Allergies/Home Medications Immunizations: IMMUNIZATION HX Immunizations Up to Date Yes History of Influenza Vaccine No Hx Pneumococcal Vaccination Yes Allergies/Adverse Reactions: Allergies pollen extracts Allergy (Verified 07/12/20 16:48) atorvastatin calcium [From Lipitor] Adverse Reaction (Mild, Verified 07/12/20 16:48) LEG WEAKNESS metformin Adverse Reaction (Mild, Verified 07/12/20 16:48) Diarrhea methotrexate Adverse Reaction (Mild, Verified 07/12/20 16:48) ELEVATED LFT'S morphine Adverse Reaction (Mild, Verified 07/12/20 16:48) N/V oxycodone HCl [From Percocet] Adverse Reaction (Mild, Verified 07/12/20 16:48) INTOLERANCE, STOMACH UPSET, "KNOCKED ME OUT" Home Medications: HOME MEDICATIONS Acetaminophen [Tylenol] 1,000 mg PO Q6H PRN 08/07/17 [Last Taken Unknown] Finasteride [Proscar] 5 mg PO DAILY 08/07/17 [Last Taken 08/07/17 08:00] Harrison, Disposable [Needle] 1 ea MC Q7D 08/07/17 [Last Taken Unknown] cyanocobalamin (vitamin B-12) 1,000 mcg tablet 1,000 mcg PO DAILY 01/30/18 [Last Taken Unknown] albuterol sulfate 90 mcg/actuation aerosol inhaler 2 puff IH Q4H PRN #8.5 g 08/07/19 [Last Taken Unknown] etanercept 50 mg/mL (1 mL) subcutaneous syringe 50 mg SUBCUT QWEEK #0.1 ml 08/07/19 [Last Taken Unknown] tamsulosin 0.4 mg capsule 0.4 mg PO DAILY #90 cap 06/28/20 [Last Taken Unknown] furosemide 20 mg tablet 20 mg PO DAILY #30 tab 06/30/20 [Last Taken Unknown] alprazolam 0.25 mg tablet 0.25 mg PO BID PRN #30 tab 07/05/20 [Last Taken Unknown] nitroglycerin 0.4 mg sublingual tablet 0.4 mg SL Q5-15M PRN #30 tab 07/08/20 [Last Taken Unknown] clopidogrel 75 mg tablet 75 mg PO DAILY #90 tab 07/09/20 [Last Taken Unknown] FLUoxetine HCL [Prozac] 20 mg PO QAM 07/12/20 [Last Taken Unknown] Fludrocortisone Acetate 0.1 mg PO ONCE 07/12/20 [Last Taken Unknown] Mirtazapine [Remeron] 30 mg PO DAILY 07/12/20 [Last Taken Unknown] - Pain Pain Score #1 Pain Score: 0 - History of Present Illness Narrative: The patient is a 85 year old male who presents via EMS for falls and chest pain which has been present since this am. There are associated symptoms of weakness and cough. The patient denies pain. There are no alleviating factors. There are aggravating factors of activity. Previous treatments have included: ASA 324mg [employer]IST. The past medical history includes: BPH, bladder cancer, CKD, CAD, GERD, HTN, HLD, RA and TIA. The social history is negative. The patient has had no known ill contacts. Patient states he has been falling frequently due to weakness and unsteady gait with last fall being this am in which he states he lost his balance falling forward, denies LOC. Patient states he also had episode of sternal chest pain which he reports as resolved upon arrival. Review of Systems - Review of Systems Constitutional: Present: weakness, fatigue. Absent: recent illness, fever, chills EYE: Present: no symptoms reported. Absent: vision changes ENT: Present: no symptoms reported. Absent: ear pain, nasal drainage, sore throat Respiratory: Present: cough. Absent: shortness of breath - chronic without change Cardiology: Present: chest pain Gastrointestinal/Abdominal: Present: eating less, drinking less. Absent: nausea, vomiting, diarrhea Genitourinary: Present: no symptoms reported. Absent: dysuria, decreased urinary output Musculoskeletal: Present: no symptoms reported. Absent: neck pain Skin: Present: no symptoms reported. Absent: rash Neurological: Present: dizziness/light-headedness, weakness. 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 CAD (coronary artery disease) Onset Date: ~1988 Calculus of kidney Onset Date: ~1986 Colonic polyp Onset Date: ~2001 Deviated nasal septum Onset Date: Unknown Eczema Onset Date: ~2001 GERD (gastroesophageal reflux disease) Onset Date: Unknown Interstitial lung disease Onset Date: ~2012 related to RA vs smoking, vs occupational exposures Osteoarthritis Onset Date: ~2006 back, bilat hips Osteopenia Onset Date: ~2004 Psoriasiform dermatitis Onset Date: Unknown Renal failure Onset Date: ~2011 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 Rheumatoid arthritis Onset Date: ~1999 Septicemia Onset Date: ~2006 Spinal stenosis, lumbar Onset Date: ~2007 with neuro claudication: s/p epidural steroid injection TIA (transient ischemic attack) Onset Date: ~1979 Tubular adenoma of colon Onset Date: Unknown UTI (urinary tract infection) Onset Date: Unknown Chronic kidney disease (CKD) Onset Date: Unknown Stage 3 Chronic sinusitis Onset Date: Unknown Hyperlipidemia Onset Date: Unknown Hypertension Onset Date: Unknown Ileus Onset Date: ~2010 Surgical History: Surgical History (Last Reviewed 07/12/20 @ 14:03 by MIGUEL ANGEL Winslow) Cystectomy Onset Date: Unknown H/O colonoscopy Onset Date: ~12/1999-Tubular adenoma with dysplasia. 2007-Dr Bergman-tubular adenoma. Recheck in 5 years. H/O cystoscopy Onset Date: ~2006 found 2-3 bladder tumors, 2 stones and a large prostate H/O eye surgery Onset Date: ~2002 Dr Jain-removal of intraocular foreign body H/O nasal septoplasty Onset Date: ~2013 H/O repair of rotator cuff Onset Date: ~2002 Dr Doty-left H/O shoulder surgery Onset Date: ~2001 acriomioplasty of the left shoulder H/O sinus surgery Onset Date: ~2015 History of YAG laser capsulotomy of lens of right eye Onset Date: ~2007 History of appendectomy Onset Date: ~1948 History of bladder surgery Onset Date: ~2006 bladder tumor status post ureteral stent History of cardiac catheterization Onset Date: ~1999 History of cataract surgery Onset Date: ~2002 History of esophagogastroduodenoscopy (EGD) Onset Date: ~2011 Dr Bergman-clotest negative. 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 Hx of CABG Onset Date: ~1988 S/P TURP Onset Date: ~2006 bladder tumor with stent placement S/P epidural steroid injection Onset Date: ~2007 L4-5 finger surgery Onset Date: Unknown 5th digit on left hand-secondary to a table saw accident teeth extracted Onset Date: Unknown ureteroscopy Onset Date: ~2008 bilateral Family History: Family History (Last Reviewed 07/12/20 @ 14:03 by MIGUEL ANGEL Winslow) Brother Hypertension Brother Myocardial infarction Daughter Thyroid disease Hypertension Diabetes Father , age 55 CVA (cerebral vascular accident) Mother , age 82 Hypertension Diabetes Sister Parkinsons Liver mass Diabetes Son Hypertension Heart disease Social History: (Last Reviewed 07/12/20 @ 14:03 by MIGUEL ANGEL Winslow) Social History: adopted: No foster care: No longterm: No Marital status: lives independently: No household members: spouse caregiver/support person: No current occupational status: retired Highest level of school completed/degree received: high school graduate Service: No Tobacco: Smoking Status: Former smoker Alcohol: alcohol intake: never Substance Use: substance use type: does not use Dietary Habits: caffeine: Yes Physical Exam - Physical Exam General Appearance: Present: wd/wn, alert, no apparent distress Head Exam: Present: normal inspection, other - superficial abrasion to bridge of nose Eye Exam: Normal inspection: bilateral, PERRL: bilateral, EOMI: bilateral Ears, Nose, Throat: Present: normal pharynx, other - tongue protrudes to midline Neck: Present: normal inspection, nontender, full range of motion Respiratory: Present: no respiratory distress, normal breath sounds, accessory muscle use, decreased breath sounds - bases Cardiovascular/Chest: Present: regular rate, rhythm, no murmur Gastrointestinal/Abdominal: Present: normal bowel sounds, nontender, nondistended, soft, no organomegaly Extremity Exam: Present: no edema Neurological Exam: Present: alert, oriented, normal mood/affect, no motor/sensory deficits. Absent: motor weakness, disoriented to person, disoriented to time Skin Exam: Present: normal color, warm/dry - C-Spine cleared by: Neg history & exam Progress - Date and Time Seen: Date and Time: 07/12/20 14:59 Patient has interval increase to BNP with report of dyspnea, chest pain and weakness. Will administer additional dose of Lasix to aid with fluid retention. Patient has also had increased falls and lives alone. After joint discussion with patient and family that they would like to proceed with longterm placement for strengthening. Case was reviewed with and agrees to admission for monitor and evaluation. - Results and Orders Patient's Lab Results:: I have reviewed the patient's lab results. - Vital Signs Patient's Vital Signs:: I have reviewed the patient's vital signs. Vital Signs: Vital Signs 07/12/20 13:48 Temperature 36.6 C Pulse Rate 76 Respiratory Rate 15 Blood Pressure 168/64 H O2 Sat by Pulse Oximetry 97 - EKG EKG #1 EKG: NSR, nonspecific ST T wave changes EKG read: Reviewed by me - X-Ray X-Ray #1 X-Ray: chest Interpretation: Reviewed by me X-ray Comments: IMPRESSION: NO ACUTE CARDIOPULMONARY ABNORMALITY IDENTIFIED. Electronically signed by Mundo Cota D.O.. - CT/Ultrasound CT/Ultrasound Narrative: IMPRESSION: 1. ACUTE ON CHRONIC SINUSITIS WITH PRIOR SURGICAL CHANGES ALSO IDENTIFIED. 2. OTHERWISE NO ACUTE INTRACRANIAL ABNORMALITY IDENTIFIED. Electronically signed by Mundo Cota D.O.. - Progress/Reassessment Chief Complaint: Fall Progress:: Unchanged Departure Clinical Impression: Weakness CHF (congestive heart failure) Qualifiers: Heart failure type: diastolic Heart failure chronicity: acute on chronic Qualified Code(s): I50.33 - Acute on chronic diastolic (congestive) heart failure - Departure Disposition: Still a patient Condition: Fair Critical Care Time - Critical Care Critical Time Spent:: No
[2020-07-12 14:17] LABS: Prothrombin Time (Patient) 10.9 Seconds (9.1-10.7)
[2020-07-12 14:18] LABS: INR 1.11 INR (0.92-1.08); Partial Thrombolplastin Time 27.1 Seconds (24-32)
[2020-07-12 14:22] LABS: Urine Appearance Clear (CLEAR); Urine Color Yellow; Urine RBC None Seen /hpf (0-5); Urine WBC None Seen /hpf (0-5)
[2020-07-12 14:23] LABS: Urine Amorphous Sediment Few - 1+ (NONE-FEW); Urine Bacteria None Seen
[2020-07-12 14:26] LABS: Albumin * 3.6 gm/dl (3.4-5.0); BUN/Creatinine Ratio 14.6 (9.0-21.6); Bilirubin, Total 0.4 mg/dL (0.0-1.1); Ca. Corrected For Albumin 8.7 mg/dL (8.4-10.2); Calcium * 8.7 mg/dL (7.9-10.9); Total Protein 8.1 gm/dL (6.2-8.2)
[2020-07-12 14:27] LABS: Troponin I 0.017 ng/mL (0.00-0.10)
[2020-07-12] MEDS ORDERED: FUROSEMIDE 10 MG/ML VIAL IV ONE (14:56)
[2020-07-12] MEDS: ALPRAZolam 0.25 MG TABLET PO PRN (18:47)
--- NOTE | 2020-07-12 19:21 | HP ---
Chief Complaint - Chief Complaint Date of Service: 07/12/20 Time of Service: 17:15 Chief Complaint: Weakness and multiple falls, chest pain History of Present Illness: Aguila is an 85 yo male that reports 3 falls today and found himself having difficulty standing after the last fall. He called EMS and was brought to the ER for evaluation. He reported chest pain, worse with talking and deep breathing. She reports shortness of breath but is not sure if it is worse than his usual. He is continuously on 2lpm of oxygen due to interstitial lung disease. He reports his falls have been occurring for the past several months but have been getting more frequent. 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 CAD (coronary artery disease) Onset Date: ~1988 Calculus of kidney Onset Date: ~1986 Colonic polyp Onset Date: ~2001 Deviated nasal septum Onset Date: Unknown Eczema Onset Date: ~2001 GERD (gastroesophageal reflux disease) Onset Date: Unknown Interstitial lung disease Onset Date: ~2012 related to RA vs smoking, vs occupational exposures Osteoarthritis Onset Date: ~2006 back, bilat hips Osteopenia Onset Date: ~2004 Psoriasiform dermatitis Onset Date: Unknown Renal failure Onset Date: ~2011 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 Rheumatoid arthritis Onset Date: ~1999 Septicemia Onset Date: ~2006 Spinal stenosis, lumbar Onset Date: ~2007 with neuro claudication: s/p epidural steroid injection TIA (transient ischemic attack) Onset Date: ~1979 Tubular adenoma of colon Onset Date: Unknown UTI (urinary tract infection) Onset Date: Unknown Chronic kidney disease (CKD) Onset Date: Unknown Stage 3 Chronic sinusitis Onset Date: Unknown Hyperlipidemia Onset Date: Unknown Hypertension Onset Date: Unknown Ileus Onset Date: ~2010 Surgical History: Surgical History (Last Reviewed 07/12/20 @ 16:48 by Eleazar Dawson, RN) Cystectomy Onset Date: Unknown H/O colonoscopy Onset Date: ~12/1999-Tubular adenoma with dysplasia. 2007-Dr Bergman-tubular adenoma. Recheck in 5 years. H/O cystoscopy Onset Date: ~2006 found 2-3 bladder tumors, 2 stones and a large prostate H/O eye surgery Onset Date: ~2002 Dr Jain-removal of intraocular foreign body H/O nasal septoplasty Onset Date: ~2013 H/O repair of rotator cuff Onset Date: ~2002 Dr Doty-left H/O shoulder surgery Onset Date: ~2001 acriomioplasty of the left shoulder H/O sinus surgery Onset Date: ~2015 History of YAG laser capsulotomy of lens of right eye Onset Date: ~2007 History of appendectomy Onset Date: ~1948 History of bladder surgery Onset Date: ~2006 bladder tumor status post ureteral stent History of cardiac catheterization Onset Date: ~1999 History of cataract surgery Onset Date: ~2002 History of esophagogastroduodenoscopy (EGD) Onset Date: ~2011 Dr Conroy negative. 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 Hx of CABG Onset Date: ~1988 S/P TURP Onset Date: ~2006 bladder tumor with stent placement S/P epidural steroid injection Onset Date: ~2007 L4-5 finger surgery Onset Date: Unknown 5th digit on left hand-secondary to a table saw accident teeth extracted Onset Date: Unknown ureteroscopy Onset Date: ~2008 bilateral Family History: Family History (Last Reviewed 07/12/20 @ 16:48 by Eleazar Dawson RN) Brother Hypertension Brother Myocardial infarction Daughter Diabetes Hypertension Thyroid disease Father , age 55 CVA (cerebral vascular accident) Mother , age 82 Diabetes Hypertension Sister Diabetes Liver mass Parkinsons Son Heart disease Hypertension Social History: (Last Reviewed 07/12/20 @ 16:48 by Eleazar Dawson RN) Social History: adopted: No foster care: No skilled nursing: No Marital status: lives independently: No household members: spouse caregiver/support person: No current occupational status: retired Highest level of school completed/degree received: high school graduate Service: No Tobacco: Smoking Status: Former smoker Alcohol: alcohol intake: never Substance Use: substance use type: does not use Dietary Habits: caffeine: Yes Review Of Systems (GEN) - Review of Systems Generalized/Overall Review: Present: Weakness. Absent: Chills, Fever EENTM: Present: No Symptoms Reported Respiratory: Present: Shortness of Breath. Absent: Cough, Orthopnea Cardiac: Present: Chest Pain. Absent: Edema, Palpitations Abdominal: Absent: Nausea, Vomiting Genitourinary: Present: No Symptoms Reported Musculoskeletal: Present: No Symptoms Reported Neurological: Present: Depressed. Absent: Headache Skin: Present: No Symptoms Reported Endocrine: Present: No Symptoms Reported Immunizations: IMMUNIZATION HX Immunizations Up to Date Yes History of Influenza Vaccine No Hx Pneumococcal Vaccination Yes Allergies/Adverse Reactions: Allergies Allergy/AdvReac Type Severity Reaction Status Date / Time pollen extracts Allergy Verified 07/12/20 16:48 atorvastatin calcium AdvReac Mild LEG Verified 07/12/20 16:48 [From Lipitor] WEAKNESS metformin AdvReac Mild Diarrhea Verified 07/12/20 16:48 methotrexate AdvReac Mild ELEVATED Verified 07/12/20 16:48 LFT'S morphine AdvReac Mild N/V Verified 07/12/20 16:48 oxycodone HCl [From Percocet] AdvReac Mild INTOLERANCE, Verified 07/12/20 16:48 STOMACH UPSET, "KNOCKED ME OUT" Home Medications: HOME MEDICATIONS Acetaminophen [Tylenol] 1,000 mg PO Q6H PRN 08/07/17 [Last Taken Unknown] Finasteride [Proscar] 5 mg PO DAILY 08/07/17 [Last Taken 08/07/17 08:00] [place], Disposable [Needle] 1 ea MC Q7D 08/07/17 [Last Taken Unknown] cyanocobalamin (vitamin B-12) 1,000 mcg tablet 1,000 mcg PO DAILY 01/30/18 [Last Taken Unknown] albuterol sulfate 90 mcg/actuation aerosol inhaler 2 puff IH Q4H PRN #8.5 g 08/07/19 [Last Taken Unknown] etanercept 50 mg/mL (1 mL) subcutaneous syringe 50 mg SUBCUT QWEEK #0.1 ml 08/07 [Last Taken Unknown] tamsulosin 0.4 mg capsule 0.4 mg PO DAILY #90 cap 06/28/20 [Last Taken Unknown] furosemide 20 mg tablet 20 mg PO DAILY #30 tab 06/30/20 [Last Taken Unknown] alprazolam 0.25 mg tablet 0.25 mg PO BID PRN #30 tab 07/05/20 [Last Taken Unknown] nitroglycerin 0.4 mg sublingual tablet 0.4 mg SL Q5-15M PRN #30 tab 07/08/20 [Last Taken Unknown] clopidogrel 75 mg tablet 75 mg PO DAILY #90 tab 07/09/20 [Last Taken Unknown] FLUoxetine HCL [Prozac] 20 mg PO QAM 07/12/20 [Last Taken Unknown] Fludrocortisone Acetate 0.1 mg PO ONCE 07/12/20 [Last Taken Unknown] Mirtazapine [Remeron] 30 mg PO DAILY 07/12/20 [Last Taken Unknown] Exam - Exam Vital Signs: Vital Signs - Last Taken Temp 36.6 C 07/12/20 17:21 Pulse 82 07/12/20 17:21 Resp 20 07/12/20 17:21 BP 149/74 07/12/20 17:21 Pulse Ox 98 07/12/20 17:21 Constitutional: Present: Alert, Oriented x3, Cooperative ENT Exam: Present: hearing grossly normal Eye Exam: bilateral eye: normal inspection Respiratory: Present: crackles - left lower lobe Cardiovascular/Chest: Present: regular rate, rhythm, no murmur Peripheral Pulses: radial (R): 2+, radial (L): 2+ Abdomen: Present: Normal bowel sounds, soft, nontender, nondistended, no rebound tenderness Skin Exam: Present: normal color, warm/dry, no cyanosis, other - scab at nose bridge Neurologic: Present: alert, normal mood/affect, oriented x 3 Appearance: Present: appropriate appearance, appropriate insight Eye contact: Present: cooperative, good eye contact, normal speech Thoughts: Present: normal thought pattern, no apparent hallucination Diagnostic Studies: Abnormal Lab Results 07/12/20 07/12/20 07/12/20 Range/Units 14:05 14:05 14:05 RBC 3.92 L (4.7-6.0) M/mm3 Hgb 11.3 L (13.5-18.0) gm/dL Hct 35.1 L (42.0-52.0) % Immature Gran % (Auto) 0.70 H (0.001-0.429) % Immature Gran # (Auto) 0.06 H (0.000-0.0310) K/mm3 Neutrophils % 77.3 H (42-75.0) % Lymphocytes % 12.0 L (20-51) % Neutrophils # 6.2 H (1.3-6.0) K/mm3 Lymphocytes # 0.97 L (1.5-3.5) k/mm3 ESR 48 H (0-10) mm/hr PT 10.9 H (9.1-10.7) Seconds INR (Anticoag Therapy) 1.11 H (0.92-1.08) INR Creatinine (0.4-1.4) mg/dL Est GFR (Non-Af Amer) (60-130) mL/min Random Glucose (70-110) mg/dL B-Natriuretic Peptide (5-650) pg/mL 07/12/20 Range/Units 14:05 RBC (4.7-6.0) M/mm3 Hgb (13.5-18.0) gm/dL Hct (42.0-52.0) % Immature Gran % (Auto) (0.001-0.429) % Immature Gran # (Auto) (0.000-0.0310) K/mm3 Neutrophils % (42-75.0) % Lymphocytes % (20-51) % Neutrophils # (1.3-6.0) K/mm3 Lymphocytes # (1.5-3.5) k/mm3 ESR (0-10) mm/hr PT (9.1-10.7) Seconds INR (Anticoag Therapy) (0.92-1.08) INR Creatinine 1.44 H D (0.4-1.4) mg/dL Est GFR (Non-Af Amer) 50 L D (60-130) mL/min Random Glucose 112 H (70-110) mg/dL B-Natriuretic Peptide 5288 H (5-650) pg/mL Laboratory Results WBC 8.1 K/mm3 (4.0-10.5) 07/12/20 14:05 RBC 3.92 M/mm3 (4.7-6.0) L 07/12/20 14:05 Hgb 11.3 gm/dL (13.5-18.0) L 07/12/20 14:05 Hct 35.1 % (42.0-52.0) L 07/12/20 14:05 MCV 89.5 fl (78-100) 07/12/20 14:05 MCH 28.8 pg (27-31) 07/12/20 14:05 MCHC 32.2 g/dl (32-36) 07/12/20 14:05 RDW 13.0 % (11.5-14.0) 07/12/20 14:05 Plt Count 249 K/mm3 (150-450) 07/12/20 14:05 MPV 8.4 fl (8-11.3) 07/12/20 14:05 Immature Gran % (Auto) 0.70 % (0.001-0.429) H 07/12/20 14:05 Immature Gran # (Auto) 0.06 K/mm3 (0.000-0.0310) H 07/12/20 14:05 Neutrophils % 77.3 % (42-75.0) H 07/12/20 14:05 Lymphocytes % 12.0 % (20-51) L 07/12/20 14:05 Monocytes % 7.7 % (0.0-9) 07/12/20 14:05 Eosinophils % 2.1 % (0.0-3.0) 07/12/20 14:05 Basophils % 0.2 % (0.0-1.0) 07/12/20 14:05 Nucleated RBC % 0.0 k/mm3 (0-1) 07/12/20 14:05 Neutrophils # 6.2 K/mm3 (1.3-6.0) H 07/12/20 14:05 Lymphocytes # 0.97 k/mm3 (1.5-3.5) L 07/12/20 14:05 Monocytes # 0.6 k/mm3 (0.0-1.0) 07/12/20 14:05 Eosinophils # 0.2 k/mm3 (0.0-0.7) 07/12/20 14:05 Absolute Basophils 0.0 k/mm3 (0.0-0.1) 07/12/20 14:05 ESR 48 mm/hr (0-10) H 07/12/20 14:05 PT 10.9 Seconds (9.1-10.7) H 07/12/20 14:05 INR (Anticoag Therapy) 1.11 INR (0.92-1.08) H 07/12/20 14:05 PTT ([place]) 27.1 Seconds (24-32) 07/12/20 14:05 Sodium 134 mmol/L (132-142) 07/12/20 14:05 Plasma Sodium 134 mmol/L (130-142) 07/12/20 14:05 Potassium 4.0 mmol/L (3.4-4.6) D 07/12/20 14:05 Chloride 98 mmol/L (97-106) 07/12/20 14:05 Carbon Dioxide 31.0 mmol/L (24-32.6) 07/12/20 14:05 Anion Gap 9.0 mmol/L (6.8-13.8) 07/12/20 14:05 BUN 21 mg/dL (6-23) 07/12/20 14:05 Creatinine 1.44 mg/dL (0.4-1.4) H D 07/12/20 14:05 Est GFR (Non-Af Amer) 50 mL/min (60-130) L D 07/12/20 14:05 BUN/Creatinine Ratio 14.6 (9.0-21.6) 07/12/20 14:05 Random Glucose 112 mg/dL (70-110) H 07/12/20 14:05 Calcium 8.7 mg/dL (7.9-10.9) 07/12/20 14:05 Calcium Adj for Albumin 8.7 mg/dL (8.4-10.2) 07/12/20 14:05 Total Bilirubin 0.4 mg/dL (0.0-1.1) 07/12/20 14:05 AST 15 U/L (0-48) 07/12/20 14:05 ALT 24 U/L (19-67) 07/12/20 14:05 Alkaline Phosphatase 52 U/L (50-170) 07/12/20 14:05 Troponin I 0.017 ng/mL (0.00-0.10) 07/12/20 14:05 B-Natriuretic Peptide 5288 pg/mL (5-650) H 07/12/20 14:05 Total Protein 8.1 gm/dL (6.2-8.2) 07/12/20 14:05 Albumin 3.6 gm/dl (3.4-5.0) 07/12/20 14:05 Urine Color Yellow 07/12/20 13:50 Urine Appearance Clear (CLEAR) 07/12/20 13:50 Urine pH 7.5 pH (5.0-7.0) 07/12/20 13:50 Ur Specific [place] 1.015 SP.GR. (1.005-1.030) 07/12/20 13:50 Urine Protein Negative mg/dL (NEGATIVE) 07/12/20 13:50 Urine Glucose (UA) Negative mg/dL (NEGATIVE) 07/12/20 13:50 Urine Ketones Negative mg/dL (NEGATIVE) 07/12/20 13:50 Urine Blood Negative /ul (NEGATIVE) 07/12/20 13:50 Urine Nitrate Negative (NEGATIVE) 07/12/20 13:50 Urine Bilirubin Negative mg/dl (NEGATIVE) 07/12/20 13:50 Urine Urobilinogen Normal EU/dl (NORMAL) 07/12/20 13:50 Ur Leukocyte Esterase Negative /ul (NEGATIVE) 07/12/20 13:50 Urine RBC None seen /hpf (0-5) 07/12/20 13:50 Urine WBC None seen /hpf (0-5) 07/12/20 13:50 Ur Epithelial Cells Trace /hpf (0-5) 07/12/20 13:50 Amorphous Sediment Few - 1+ (NONE-FEW) 07/12/20 13:50 Urine Bacteria None seen (NONE) 07/12/20 13:50 Urine Culture Comments No culture indicated 07/12/20 13:50 SARS-CoV-2 (PCR) Not detected (NotDetected) 07/12/20 14:53 Assessment/Plan - Narrative Narrative: Aguila is an 85 yo male who has progressive weakness. He has come to realize that he is unable to care for himself at home. He had three falls at home and was unable to get up after the last fall. He also reports chest pain. Initial evaluation in the ER showed elevated BNP of 5k. Troponin was normal. His oxygen requirement is stable and he remains on his usual 2lpm of oxygen. EKG shows no acute change. Will admit to observation due to chest pain and weakness with falls. Will monitor troponin. He was given IV lasix in the ER and has started diuresisng. Will see if this improves his condition. Will consult PT/OT for weakness. If repeat troponin is normal will plan to discharge to [facility] tomorrow as the family report that they have him accepted for admission for strengthening. - Assessment/Plan (1) Chest pain Problem: Acute (2) Weakness Problem: Acute (3) CHF (congestive heart failure) Problem: Acute Qualifiers: Heart failure type: diastolic Heart failure chronicity: acute on chronic Qualified Code(s): I50.33 - Acute on chronic diastolic (congestive) heart failure (4) CKD (chronic kidney disease) Problem: Chronic Qualifiers: Chronic kidney disease stage: stage 3 (moderate) (5) Depression Problem: Chronic Qualifiers:
[2020-07-13] MEDS ORDERED: ACETAMINOPHEN 500 MG TABLET PO PRN (08:39)
[2020-07-13] MEDS ORDERED: ALPRAZolam 0.25 MG TABLET PO PRN (08:39)
[2020-07-13] MEDS ORDERED: CYANOCOBALAMIN 1,000 MCG TABLET PO SCH (09:00)
[2020-07-13] MEDS ORDERED: FUROSEMIDE 20 MG TABLET PO SCH (09:00)
[2020-07-13] MEDS ORDERED: FINASTERIDE 5 MG TABLET PO SCH (09:00)
[2020-07-13] MEDS ORDERED: MIRTAZAPINE 15 MG TABLET PO SCH (09:00)
[2020-07-13] MEDS ORDERED: CLOPIDOGREL BISULFATE 75 MG TABLET PO SCH (09:00)
[2020-07-13] MEDS ORDERED: FLUoxetine HCL 20 MG CAPSULE PO SCH (09:00)
[2020-07-13] MEDS: ALPRAZolam 0.25 MG TABLET PO PRN (09:53)
--- NOTE | 2020-07-13 11:51 | DS ---
(1) Chest pain Problem: Resolved (2) Weakness Problem: Acute (3) CKD (chronic kidney disease) Problem: Chronic Qualifiers: Chronic kidney disease stage: stage 3 (moderate) Chronic kidney disease stage 3 subtype: stage 3a (GFR 45-59) Qualified Code(s): N18.31 - Chronic kidney disease, stage 3a (4) Depression Problem: Chronic Qualifiers: (5) Chronic diastolic CHF (congestive heart failure) Problem: Chronic (6) CHF (congestive heart failure) Problem: Ruled-out Qualifiers: Heart failure type: diastolic Heart failure chronicity: acute on chronic Qualified Code(s): I50.33 - Acute on chronic diastolic (congestive) heart failure Date of Discharge:: 07/13/20 Hospital Course: Aguila was admitted due to weakness with multiple falls and chest pain. His chest pain was evaluated with EKG and serial troponins that were normal and showed no evidence of acute change. It was thought his weakness and falls could be related to acute on chronic diastolic CHF as he had an elevated BNP and crackles in his left lower lobe. He was treated with IV lasix 40mg and diuresed well, but this did not appear to have any improvement in his strength. He has chronic respiratory failure using 2lpm of oxygen for interstitial lung disease and this was at his baseline. PT and OT were consulted to work on strengthening. His weakness appears to be mostly related to deconditioning and he was made arrangements at [place] for ICF with PT and OT. He is medically stable and will be discharged there today. Procedures Performed: none Results and Findings: Lab Pending Results 07/12/20 13:50: Urine Color Yellow, Urine Appearance Clear, Urine pH 7.5, Ur Specific [place] 1.015, Urine Protein Negative, Urine Glucose (UA) Negative, Urine Ketones Negative, Urine Blood Negative, Urine Nitrate Negative, Urine Bilirubin Negative, Urine Urobilinogen Normal, Ur Leukocyte Esterase Negative, Urine RBC None seen, Urine WBC None seen, Ur Epithelial Cells Trace, Amorphous Sediment Few - 1+, Urine Bacteria None seen, Urine Culture Comments No culture indicated 07/12/20 14:05: WBC 8.1, RBC 3.92 L, Hgb 11.3 L, Hct 35.1 L, MCV 89.5, MCH 28.8, MCHC 32.2, RDW 13.0, Plt Count 249, MPV 8.4, Immature Gran % (Auto) 0.70 H, Imm ature Gran # (Auto) 0.06 H, Neutrophils % 77.3 H, Lymphocytes % 12.0 L, Monocytes % 7.7, Eosinophils % 2.1, Basophils % 0.2, Nucleated RBC % 0.0, Neutrophils # 6.2 H, Lymphocytes # 0.97 L, Monocytes # 0.6, Eosinophils # 0.2, Absolute Basophils 0.0 07/12/20 14:05: ESR 48 H 07/12/20 14:05: PT 10.9 H, INR (Anticoag Therapy) 1.11 H, PTT ([place]) 27.1 07/12/20 14:05: Sodium 134, Plasma Sodium 134, Potassium 4.0 D, Chloride 98, Carbon Dioxide 31.0, Anion Gap 9.0, BUN 21, Creatinine 1.44 H D, Est GFR (Non-Af Amer) 50 L D, BUN/Creatinine Ratio 14.6, Random Glucose 112 H, Calcium 8.7, Calcium Adj for Albumin 8.7, Total Bilirubin 0.4, AST 15, ALT 24, Alkaline Phosphatase 52, Troponin I 0.017, B-Natriuretic Peptide 5288 H, Total Protein 8.1, Albumin 3.6 07/12/20 14:53: SARS-CoV-2 (PCR) Not detected 07/12/20 20:06: Troponin I 0.028 Discharge Location: [facility] Disposition: Intermediate Care Facility ICF Condition: Fair Level of Care: ICF Discharge Activity: Activity as tolerated Discharge Diet: Low salt Alf Therapy: Physical Therapy, Occupation Therapy Referrals: DOC,OUTSIDE [Non Staff Physicians] - ([facility] [address] as needed) Problem Oriented Discharge Instructions to Patient/Family: Weakness, [id number] Additional Patient Instructions (free text): ICF to [facility] in [place] for PT and OT to evaluate and treat. Please call and fax discharge information to them. Complete Home Medications List: Complete Home Medication List: Acetaminophen [Tylenol] 1,000 mg PO Q6H PRN 08/07/17 Finasteride [Proscar] 5 mg PO DAILY 08/07/17 [place], Disposable [Needle] 1 ea MC Q7D 08/07/17 cyanocobalamin (vitamin B-12) 1,000 mcg tablet 1,000 mcg PO DAILY 01/30/18 albuterol sulfate 90 mcg/actuation aerosol inhaler 2 puff IH Q4H PRN #8.5 g 08/07/19 etanercept 50 mg/mL (1 mL) subcutaneous syringe 50 mg SUBCUT QWEEK #0.1 ml 08/07/19 tamsulosin 0.4 mg capsule 0.4 mg PO DAILY #90 cap 06/28/20 furosemide 20 mg tablet 20 mg PO DAILY #30 tab 06/30/20 alprazolam 0.25 mg tablet 0.25 mg PO BID PRN #30 tab 07/05/20 nitroglycerin 0.4 mg sublingual tablet 0.4 mg SL Q5-15M PRN #30 tab 07/08/20 clopidogrel 75 mg tablet 75 mg PO DAILY #90 tab 07/09/20 FLUoxetine HCL [Prozac] 20 mg PO QAM 07/12/20 Fludrocortisone Acetate 0.1 mg PO ONCE 07/12/20 Mirtazapine [Remeron] 30 mg PO DAILY 07/12/20 Forms: Patient Portal Registration
[2020-07-13 14:13] VITALS: BP 110/70
[2020-07-13] MEDS ORDERED: TAMSULOSIN HCL 0.4 MG CAP.SR.24H PO SCH (18:00)
== END 2020-07-13 13:12 ==
LOC: ER 13:41 → MS 13:41
PROVIDERS: ADMIT Family Medicine; ATTEND Family Medicine
DX: R07.9 Chest pain, unspecified; I50.33 Acute on chronic diastolic (congestive) heart failure; N18.31 Chronic kidney disease, stage 3a; W19.XXXA Unspecified fall, initial encounter; Z23 Encounter for immunization; R53.1 Weakness; Z87.891 Personal history of nicotine dependence; J32.8 Other chronic sinusitis; F32.9 Major depressive disorder, single episode, unspecified